=== PATIENT | female | born 1995 | race Hispanic/Latino ===

== ENCOUNTER → 2019-03-05 | Day surgery (SDC) | payer BC ==
[2019-02-22 14:59] LABS: BASOPHILS # (AUTO) 0.1 (0.0-0.1); BASOPHILS % 0.7 % (0.0-1.0); EOSINOPHILS # (AUTO) 0.1 (0.0-0.4); EOSINOPHILS % 1.3 % (0.0-6.0); HEMATOCRIT 37.7 % (34.2-44.1); HEMOGLOBIN 13.2 g/dL (12.0-16.0); LYMPHOCYTES # (AUTO) 2.9 (1.0-3.2); LYMPHOCYTES % 31.2 % (18.0-39.1); MEAN CORPUSCULAR HEMOGLOBIN 30.9 pg (28-32); MEAN CORPUSCULAR VOLUME 88.3 fL (81-99); MONOCYTES # (AUTO) 0.5 (0.2-0.8); MONOCYTES % 5.7 % (4.4-11.3); NEUTROPHILS # (AUTO) 5.6 (2.1-6.9); NEUTROPHILS % 60.7 % (38.7-80.0); PLATELET COUNT 236 x10e3/uL (140-360); RED BLOOD COUNT 4.27 x10e6/uL (3.6-5.1); RED CELL DISTRIBUTION WIDTH 12.8 % (11.7-14.4)
[2019-02-22 15:27] LABS: ANION GAP 13.8 mmol/L (8-16); BLOOD UREA NITROGEN 8 mg/dL (7-26); BUN/CREATININE RATIO 12 (6-25); CALCIUM 9.5 mg/dL (8.4-10.2); CARBON DIOXIDE 24 mmol/L (22-29); CHLORIDE 105 mmol/L (98-107); CREATININE, SERUM 0.68 mg/dL (0.57-1.11); EST GLOMERULAR FILTRATION RATE > 60 ML/MIN (60-); GLUCOSE 84 mg/dL (74-118); POTASSIUM 3.8 mmol/L (3.5-5.1); SODIUM 139 mmol/L (136-145)
[~2019-03-05] MED LIST: ACETAMINOPHEN 1000 MG/100 ML 100 ML IV ONE; BETAMETHASONE DISODIUM PHOS 6 MG/ML VIAL ONE; BUPIVACAINE HCL 0.5% INJ 30 ML VIAL INJ ONE; CEFAZOLIN SOD 1 GM/NS 50ML 100 ML IV ONE; DEXAMETHASONE SOD PHOS INJ 4 MG/ML VIAL ONE; FENTANYL CITRATE/PF 100MCG/2 ML INJ ONE; KETOROLAC TROMETHAMINE 30 MG/ML VIAL ONE; LIDOCAINE HCL 1% LOCAL INJ 20 ML VIAL ONE; LIDOCAINE HCL 2% LOCAL INJ 5 ML SDV VIAL INJ ONE; MEPERIDINE HCL INJ 25 MG/ML VIAL ONE; MIDAZOLAM HCL 2 MG/2 ML VIAL ONE; MUPIROCIN 2% OINT 22 GM TUBE ONE; NATAZIA 28 TAB1 EACH PO; ONDANSETRON HCL INJ 2MG/ML 2ML 2 MG/ML VIAL ONE; PROPOFOL IV EMULSION 10 MG/ML 20 ML VIAL ONE; SEVOFLURANE INHAL SOLN 250 ML PEN BTL ONE
--- OUTSIDE RECORDS SUMMARY | 2019-03-05 05:44 | XMS REPORT ---
Author Author Admin, [place] Organization [facility] Address [address] [place] [id number] Phone Allergies, Adverse Reactions, Alerts Allergy Name Reaction Description Start Date Severity Status Provider Allergies Unknown Conditions or Problems Problem Name Problem Code Onset Date Status Entry Date Provider Comment Standard Description Annotate Problems Unknown Medication List Medication Instructions Start Date Stop Date Generic Name NDC Status Provider Patient Instruction Drug Treatment Unknown - unknown
[2019-03-05 10:45] VITALS: BP 111/70
--- NOTE | 2019-03-05 11:05 | Operative Report ---
DATE OF PROCEDURE: 03/05/2019 SURGEON: Elijah Antonio DPM PREOPERATIVE DIAGNOSES: 1. Painful hallux valgus deformity, left foot. 2. Painful contracted hammertoes 4th digit, left. 3. Painful contracted hammertoes 5th digit, left. 4. Painful tailor's bunion, left foot. POSTOPERATIVE DIAGNOSES: 1. Painful hallux valgus deformity, left foot. 2. Painful contracted hammertoes 4th digit, left. 3. Painful contracted hammertoes 5th digit, left. 4. Painful tailor's bunion, left foot. OPERATIVE PROCEDURE: 1. Kel bunionectomy with screw fixation, left foot. 2. Arthroplasty of 4th digit with K-wire fixation. 3. Arthroplasty of 5th digit. 4. Tailor's bunionectomy, left foot. 5. Trigger point shot of cortisone. 6. Intraoperative use of fluoroscopy. 7. Application of posterior splint. ANESTHESIA: General. HEMOSTASIS: Pneumatic thigh tourniquet at 350 mmHg. PROCEDURE IN DETAIL: The patient was taken into the operating room and placed on the operating room table in a supine position. Following induction of general anesthesia by the anesthesiologist, Webril wraps were placed on patient's left thigh followed by application of left thigh tourniquet. The left lower extremity was then prepped and draped in the usual aseptic manner and the following procedures were then performed. Procedure #1: Kel bunionectomy with screw fixation of left foot. Attention was directed to the dorsal medial aspect of the 1st MPJ, where a 6 cm linear incision was performed. Incision was deepened down to the joint capsule. Longitudinal capsulotomy was then performed exposing the dorsomedial exostosis of the 1st metatarsal head. Via the use of an oscillation saw, dorsomedial exostosis was excised from the operation site in toto. A V-osteotomy was then performed from medial to lateral. Capital fragment was then transpositioned laterally. Upon adequate surgical and anatomical reduction utilizing proper AO technique, a 2.0, 14 mm cortical screw in conjunction with a buried 0.045 K-wire was used to achieve stability at osteotomy site. All redundant bone medially was excised via the use of an oscillating saw and rotating bur. Procedure #2 and #3: Arthroplasty of 4th and 5th digits with K-wire fixation of 4th. Attention was then directed to the dorsal aspect of the above-mentioned toes overlying the proximal interphalangeal joint, where a 3 cm linear incision was performed. Incision was deepened down to the joint capsule. Transverse capsulotomy was then performed exposing the head of the proximal phalanx. Via the use of an oscillating saw, head of the proximal phalanges were excised from the operation site in toto. Fourth toe was still noted to be contracted, so a 0.045 K-wire was introduced up to metatarsophalangeal joint to achieve proper anatomical reduction. Procedure #4: Tailor's bunionectomy of left foot. Attention was then directed to the dorsal lateral aspect of the 5th MPJ, where a 6 cm linear incision was performed. Incision was deepened down to the joint capsule. Longitudinal capsulotomy was then performed exposing the dorsal lateral exostosis of the 5th metatarsal head. Via the use of an oscillating saw, dorsal lateral exostosis was excised from the operation site in toto. All rough and bony edges were rasped smooth via the use of an oscillating bur. Procedure #5: Intraoperative use of fluoroscopy was then used to make sure proper alignment and fixation was achieved. Closure was then obtained utilizing 3-0 Vicryl, 4-0 Vicryl, 4-0 for capsule, subcutaneous tissue, and skin respectively. Procedure #6: Trigger point shot of cortisone was then given to the 1st and 4th interspace of left foot. Then, approximately 10 mL of 0.5% Marcaine plain were used to achieve local anesthesia of the above-mentioned surgical area. Sterile dressing was applied. Upon release of thigh tourniquet, blood hyperemia was noted immediately to all digits of the patient's left foot. Procedure #7: Application of posterior splint. A properly placed posterior splint was then applied keeping the foot at 90 with respect to the leg to try and prevent any type of postop complications. The patient was then transferred from the OR to recovery room with vital signs stable and neurovascular status intact. No intraoperative complications were encountered. Blood loss from the surgery was minimal. The patient to remain nonweightbearing with the aid of the crutches, keep her foot elevated, and to apply ice pack to the ankle joint area. MARGARITO Goldman/MODL /[id number]
--- NOTE | 2019-03-05 11:10 | Diagnostic Imaging Report ---
Exam: Right foot series, 3 views. Clinical History: Status post bunionectomy Comparison: None Findings: Postoperative findings status post right bunionectomy with pin and screw fixation at the first metatarsal osteotomy which is in near anatomic alignment. K wire fixation of the fourth toe spanning the PIP and DLP joints. Gauze material overlies the soft tissues. Impression: Postoperative findings status post right bunionectomy. Signed by: Harman Padron MD on 03/05/2019 11:06 AM
== END | disposition home or self-care (01) ==
LOC: OR 05:41
PROVIDERS: ATTEND Podiatrist Foot Surgery
DX: M20.12 Hallux valgus (acquired), left foot (principal); M20.42 Other hammer toe(s) (acquired), left foot; M21.622 Bunionette of left foot; Z01.812 Encounter for preprocedural laboratory examination
CPT/HCPCS: 28110; 28285 ×2; 28296; 36415; 73630; 80048; 81025; 84702; 85025; 97116; 97161; C1713 ×2; J0131; J0690; J0720; J1100; J1885; J2001 ×2; J2175; J2250; J2405; J2704; J3010